=== PATIENT | female | born 1940 | race Caucasian/White ===

== ENCOUNTER → 2020-11-28 | Outpatient (CLI) | payer MEDICARE ==
[~2020-11-28] MED LIST: AMIO100T4 PO; AMIO400T5 PO; CHOL2000 PO; EZET10TA70 PO; LEVO100T5 PO; LEVO125T63 PO; LUTE20CA2 PO; METO200T2 PO; MULT-658 PO; MULT-717 PO; OMEG1CAP24 PO; RANI150T4 PO; REGADENOSON 0.4 MG/5 ML SYRINGE ONE; ROSU20TA2 PO; WARF-36 PO; [UNRECOGNIZED DRUG - CODE] PO
== END | disposition home or self-care (01) ==
LOC: CFH 07:35
PROVIDERS: ATTEND Nurse Practitioner Family
DX: I48.92 Unspecified atrial flutter (principal); I48.91 Unspecified atrial fibrillation; I42.9 Cardiomyopathy, unspecified
CPT/HCPCS: 78452; 93017; A9502; J2785

== ENCOUNTER 2020-12-08 10:12 | Day surgery (SDC) | payer MEDICARE ==
[~2020-12-08] VITALS: Ht 167.6 cm; Wt 77.3 kg
[~2020-12-08 10:12] MED LIST changes: -REGADENOSON 0.4 MG/5 ML SYRINGE ONE
[2020-12-08 10:51] VITALS: BP 117/64
[2020-12-08] MEDS ORDERED: LEVO50TA5 PO (11:12)
[2020-12-08] MEDS ORDERED: BIOT1CAP3 PO (11:12)
[2020-12-08 11:18] LABS: ANION GAP 8 mmol/L (5-15); CALCIUM 9.3 mg/dL (8.5-10.1); CHLORIDE 109 mmol/L (98-107); CREATININE 1.37 mg/dL (0.55-1.02)
[2020-12-08 11:19] LABS: INTERNATIONAL NORMALIZED RATIO 2.6 (0.93-1.1); PROTHROMBIN TIME 27.3 Seconds (9.6-11.5)
[2020-12-08] MEDS ORDERED: PROPOFOL 10 MG/ML, 20ML ONE (12:20)
== END 2020-12-08 13:47 | disposition home or self-care (01) ==
LOC: CACL 10:12
PROVIDERS: ATTEND Internal Medicine Clinical Cardiac Electrophysiology
DX: I48.92 Unspecified atrial flutter (principal); I48.20 Chronic atrial fibrillation, unspecified; I25.10 Atherosclerotic heart disease of native coronary artery without angina pectoris; I42.9 Cardiomyopathy, unspecified; I10 Essential (primary) hypertension; I25.2 Old myocardial infarction; E03.9 Hypothyroidism, unspecified; E78.5 Hyperlipidemia, unspecified; Z79.01 Long term (current) use of anticoagulants; Z79.890 Hormone replacement therapy; Z79.899 Other long term (current) drug therapy; Z88.5 Allergy status to narcotic agent; Z88.8 Allergy status to other drugs, medicaments and biological substances; Z95.0 Presence of cardiac pacemaker
CPT/HCPCS: 36415; 80048; 85610; 92960; 93005; J2704